=== PATIENT | female | born 1985 | race Caucasian/White ===

== ENCOUNTER 2016-04-22 19:08 | Emergency (ER) | payer OTHER ==
[2016-04-22] MEDS ORDERED: Aspirin Low Dose CHEW TAB* 81 MG PO ONE (20:59)
[2016-04-22 21:19] LABS: Hematocrit 42 % (35-47); Hemoglobin 14.2 g/dl (12.0-16.0); Mean Corpuscular HGB Conc 34 g/dl (31-36); Mean Corpuscular Hemoglobin 31 pg (27-31); Mean Corpuscular Volume 92 fL (80-97); Mean Platelet Volume 9 um3 (7.4-10.4); Red Blood Count 4.59 10^6/ul (4.0-5.4); Red Cell Distribution Width 13 % (10.5-15); White Blood Count 7.7 10^3/ul (3.5-10.8)
[2016-04-22 21:31] LABS: Albumin 4.3 g/dL (3.2-5.2); Calcium 9.6 mg/dL (8.6-10.3); EGFR Non-African American 82.4 (>60); Globulin 3.2 g/dL (2-4); Potassium 3.6 mmol/L (3.5-5.0); Total Bilirubin 0.3 mg/dL (0.2-1.0); Total Protein 7.5 g/dL (6.4-8.9)
--- NOTE | 2016-04-22 21:31 | RAD ---
INDICATION: Chest pain. COMPARISON: There are no prior studies available for comparison. TECHNIQUE: A portable view of the chest was obtained. FINDINGS: Cardiac and mediastinal contours appear to be within normal limits. The lungs are clear. No pleural effusion is seen. IMPRESSION: NO EVIDENCE FOR ACUTE DISEASE.
--- NOTE | 2016-04-22 21:48 | ED ---
Stephanie Blackmon Erika, scribed for Elizabeth Liu MD on 04/22/16 at 2142 . HPI Chest Pain - HPI Summary HPI Summary: Patient is a 30-year-old female presenting to the ED with a CC of chest tightness. She reports that she felt slight tightness in her chest last night, which resolved. Today around 11:00, she has had a constant chest tightness which has not worsened. Pain is slightly aggravated by deep breathing, and is not changed by position. She denies fever, chills, cough, and abdominal pain. She states she has not had coffee or spicy food recently. She denies Hx GERD, asthma. Pt denies taking oral contraceptives, and denies recent travel. Denies Hx HTN, diabetes. Denies FHx PE, DVT, SC before the age of 56. Pt lightly smokes , and does not use illicit drugs. - History of Current Complaint Chief Complaint: EDChestPainROMI Time Seen by Provider: 04/22/16 20:49 Hx Obtained From: Patient, Family/Weight Inspector Onset/Duration: Started Hours Ago, Atraumatic, Still Present Timing: Constant Initial Severity: Mild Current Severity: Moderate Pain Intensity: 5 Pain Scale Used: 0-10 Numeric Chest Pain Radiates: No Character: Tightness Aggravating Factor(s): Deep Breaths Alleviating Factor(s): Nothing Associated Signs and Symptoms: Negative: Fever, Chills, Cough, Abdominal Pain - Allergy/Home Medications Allergies/Adverse Reactions: Allergies Allergy/AdvReac Type Severity Reaction Status Date / Time Amoxicillin Allergy Hives Verified 04/22/16 19:13 Sulfa Antibiotics Allergy Hives Verified 04/22/16 19:13 PMH/Surg Hx/FS Hx/Imm Hx Previously Healthy: Yes Endocrine/Hematology History: Denies: Hx Diabetes Cardiovascular History: Denies: Hx Hypertension Infectious Disease History: No Infectious Disease History: Denies: Traveled Outside the [place] in Last 30 Days - Family History Known Family History: Negative: Cardiac Disease, Blood Disorder - Social History Lives: With Family Alcohol Use: None Hx Substance Use: No Substance Use Type: Reports: None Hx Tobacco Use: Yes Smoking Status (MU): Current Some Day Smoker Review of Systems Negative: Fever, Chills Positive: Chest Pain Negative: Cough Negative: Abdominal Pain All Other Systems Reviewed And Are Negative: Yes Physical Exam Triage Information Reviewed: Yes Vital Signs On Initial Exam: Initial Vitals Temp Pulse Resp BP Pulse Ox 97.6 F 78 18 119/66 100 04/22/16 19:13 04/22/16 19:13 04/22/16 19:13 04/22/16 19:13 04/22/16 19:13 Vital Signs Reviewed: Yes Appearance: Positive: Well-Appearing, No Pain Distress Skin: Positive: Warm, Skin Color Reflects Adequate Perfusion, Dry Eyes: Positive: EOMI, LYDIA ENT: Positive: Pharynx normal, TMs normal Neck: Positive: Supple, Nontender Respiratory/Lung Sounds: Positive: Clear to Auscultation, Breath Sounds Present. Negative: Rales, Rhonchi, Wheezes Cardiovascular: Positive: RRR, Other - No gallops. Negative: Murmur, Rub Abdomen Description: Positive: Nontender, Soft, Other: - No rebound. Negative: Distended, Guarding Bowel Sounds: Positive: Present Musculoskeletal: Positive: Other - KELSEY, no edema Neurological: Positive: Sensory/Motor Intact, Alert, Oriented to Person Place, Time, Other - CN II-XII Psychiatric: Positive: Affect/Mood Appropriate Diagnostics - Vital Signs Vital Signs Temp Pulse Resp BP Pulse Ox 04/22/16 19:13 97.6 F 78 18 119/66 100 - Laboratory Lab Results: Lab Results 04/22/16 04/22/16 Range/Units 20:15 20:15 WBC 7.7 (3.5-10.8) 10^3/ul RBC 4.59 (4.0-5.4) 10^6/ul Hgb 14.2 (12.0-16.0) g/dl Hct 42 (35-47) % MCV 92 (80-97) fL MCH 31 (27-31) pg MCHC 34 (31-36) g/dl RDW 13 (10.5-15) % Plt Count 267 (150-450) 10^3/ul MPV 9 (7.4-10.4) um3 Neut % (Auto) 38.6 (38-83) % Lymph % (Auto) 50.1 H (25-47) % Stark % (Auto) 7.0 (1-9) % Eos % (Auto) 3.3 (0-6) % Baso % (Auto) 1.0 (0-2) % Absolute Neuts (auto) 3.0 (1.5-7.7) 10^3/ul Absolute Lymphs (auto) 3.8 (1.0-4.8) 10^3/ul Absolute Monos (auto) 0.5 (0-0.8) 10^3/ul Absolute Eos (auto) 0.3 (0-0.6) 10^3/ul Absolute Basos (auto) 0.1 (0-0.2) 10^3/ul Absolute Nucleated RBC 0.01 10^3/ul Nucleated RBC % 0.1 Sodium 138 (133-145) mmol/L Potassium 3.6 (3.5-5.0) mmol/L Chloride 104 (101-111) mmol/L Carbon Dioxide 28 (22-32) mmol/L Anion Gap 6 (2-11) mmol/L BUN 9 (6-24) mg/dL Creatinine 0.82 (0.51-0.95) mg/dL Est GFR ( Amer) 106.0 (>60) Est GFR (Non-Af Amer) 82.4 (>60) BUN/Creatinine Ratio 11.0 (8-20) Glucose 82 (70-100) mg/dL Calcium 9.6 (8.6-10.3) mg/dL Total Bilirubin 0.30 (0.2-1.0) mg/dL AST 16 (13-39) U/L ALT 14 (7-52) U/L Alkaline Phosphatase 33 L (34-104) U/L Troponin I 0.00 (<0.04) ng/mL Total Protein 7.5 (6.4-8.9) g/dL Albumin 4.3 (3.2-5.2) g/dL Globulin 3.2 (2-4) g/dL Albumin/Globulin Ratio 1.3 (1-3) Result Diagrams: 04/22/16 20:15 04/22/16 20:15 Lab Statement: Any lab studies that have been ordered have been reviewed, and results considered in the medical decision making process. - EKG 19:16 Cardiac Rate: NL - 60 bpm EKG Rhythm: Sinus Rhythm Ectopy: None EKG Interpretation: No ST elevation. No Q waves Chest Pain Course/Dx - Course Course Of Treatment: pt has no cad or pe risk factors, greater than 6 hour trop negative ok to gohome close f/u wiht pmd - Diagnoses Provider Diagnoses: Chest pain Discharge - Discharge Plan Condition: Stable Disposition: HOME Patient Education Materials: Chest Pain (ED) Referrals: Analy Alva PA [Primary Care Provider] - Additional Instructions: Please follow up with your PCP The documentation as recorded by the Stephanie gutierrez Erika accurately reflects the service I personally performed and the decisions made by me, Elizabeth Liu MD.
== END 2016-04-22 21:48 | disposition home or self-care (01) ==
LOC: ED 19:08
DX: R07.9 Chest pain, unspecified (principal); Z87.19 Personal history of other diseases of the digestive system; Z72.0 Tobacco use
CPT/HCPCS: 36415; 71010; 80053; 84484; 85025; 93005; 99282; A9270-GY